=== PATIENT | female | born 1975 ===

== ENCOUNTER 2017-03-17 21:50 | Emergency (ER) | payer MEDICARE, MEDICAID ==
[2017-03-17 22:23] VITALS: RESP 18; O2SAT 98
--- NOTE | 2017-03-17 23:18 | C.PDOC ---
History Of Present Illness 41 y/o female brought to ED by EMS for public intoxications. No signs of injury on arrival. Patient with no physical or medical complaints. Chief Complaint (Nursing): Substance Abuse History Per: Patient History/Exam Limitations: no limitations Current Symptoms Are (Timing): Still Present Modifying Factor(s): Alcohol Associated Symptoms: denies: Anxiety, Agitation, Depression, Suicidal Thoughts, Suicidal Plan Recent travel outside of the [place]: No Past Medical History Reviewed: Historical Data, Nursing Documentation, Vital Signs Vital Signs: Last Vital Signs Temp 97.4 F L 03/17/17 21:57 Pulse 90 03/17/17 21:57 Resp 18 03/17/17 21:57 BP 132/86 03/17/17 21:57 Pulse Ox 98 03/17/17 23:18 - Medical History PMH: No Chronic Diseases Family History: States: Unknown Family Hx - Social History Hx Alcohol Use: Yes Hx Substance Use: No - Immunization History Hx Tetanus Toxoid Vaccination: No Hx Influenza Vaccination: No Hx Pneumococcal Vaccination: No Review Of Systems Except As Marked, All Systems Reviewed And Found Negative. Constitutional: Negative for: Fever, Chills Cardiovascular: Negative for: Chest Pain, Palpitations Respiratory: Negative for: Cough, Shortness of Breath Gastrointestinal: Negative for: Nausea, Vomiting Skin: Negative for: Rash Psych: Negative for: Suicidal ideation, Withdrawal Physical Exam - Physical Exam Appears: Non-toxic, No Acute Distress Skin: Normal Color, Warm, Dry Head: Atraumatic, Normacephalic Chest: Symmetrical Cardiovascular: Rhythm Regular Respiratory: Normal Breath Sounds, No Rales, No Rhonchi, No Wheezing Gastrointestinal/Abdominal: Soft, No Tenderness Back: Normal Inspection Extremity: Normal ROM, Capillary Refill (< 2 sec. ) Neurological/Psych: Oriented x3 ED Course And Treatment - Laboratory Results Result Diagrams: 03/17/17 23:23 03/17/17 23:23 O2 Sat by Pulse Oximetry: 98 (RA) Pulse Ox Interpretation: Normal Progress Note: Labs ordered and reviewed. Disposition - Disposition Referrals: ED Physician, [Staff Provider] - [facility] at [facility] [Outside] Disposition: HOME/ ROUTINE Disposition Time: 04:21 Condition: STABLE Instructions: Abuse of Alcohol (ED) - POA Present On Arrival: None - Clinical Impression Clinical Impression: Alcohol abuse - Scribe Statement The provider has reviewed the documentation as recorded by the Melisa Diaz Provider Melisa Attestation: All medical record entries made by the Melisa were at my direction and personally dictated by me. I have reviewed the chart and agree that the record accurately reflects my personal performance of the history, physical exam, medical decision making, and the department course for this patient. I have also personally directed, reviewed, and agree with the discharge instructions and disposition.
[2017-03-17 23:26] LABS: BASO # 0.1 K/uL (0.0-0.2); BASO % 0.8 % (0.0-2.0); EOS # 0.1 K/uL (0.0-0.7); EOS % 1.2 % (0.0-4.0); HEMATOCRIT 42.2 % (34.0-47.0); LYMPH # 1.4 K/uL (1.0-4.3); MEAN CELL VOLUME 104.4 fL (81.0-99.0); MEAN CORPUSCULAR HEMOGLOBIN 34.8 pg (27.0-31.0); MEAN CORPUSCULAR HGB CONC 33.4 g/dL (33.0-37.0); MEAN PLATELET VOLUME 8.9 fL (7.2-11.7); MONO # 0.4 K/uL (0.0-0.8); MONO % 6.2 % (0.0-10.0); RED CELL DISTRIBUTION WIDTH 14.1 % (11.5-14.5); WHITE BLOOD COUNT 6.8 K/uL (4.8-10.8)
[2017-03-17 23:33] LABS: CHLORIDE 111 mmol/L (98-107)
[2017-03-17 23:34] LABS: SODIUM 148 mmol/L (132-148)
[2017-03-17 23:36] LABS: ALB/GLOB RATIO 1.5 (1.0-2.1); ALKALINE PHOSPHATASE 58 U/L (38-126); ALT/SGPT 9 U/L (9-52); AST/SGOT 20 U/L (14-36); BILIRUBIN,TOTAL 0.4 mg/dL (0.2-1.3); BLOOD UREA NITROGEN 7 mg/dL (7-17); CARBON DIOXIDE 23 mmol/L (22-30); GFR AFRICAN-AMERICAN > 60; GLUCOSE,RANDOM 93 mg/dL (65-105)
[2017-03-17 23:37] LABS: CALCIUM 8.4 mg/dl (8.6-10.4)
[2017-03-17 23:47] LABS: ALCOHOL SERUM 386 mg/dl (0-10)
[2017-03-18 01:16] LABS: RBC URINE 1 /hpf (0-3); URINE BACTERIA OCC (<OCC); URINE BILIRUBIN NEGATIVE (NEGATIVE); URINE BLOOD NEGATIVE (NEGATIVE); URINE COLOR Straw (YELLOW); URINE GLUCOSE (UA) NORMAL (Normal); URINE KETONE NEGATIVE (NEGATIVE); URINE LEUKOCYTE ESTERASE NEG Leu/uL (Negative); URINE PROTEIN NEGATIVE (NEGATIVE); URINE UROBILINOGEN NORMAL mg/dL (0.2-1.0); WBC URINE 1 /hpf (0-5)
[2017-03-18 04:44] VITALS: BP 148/74; PULSE 92; TEMP 98.2
== END 2017-03-18 04:38 | disposition home or self-care (01) ==
LOC: MERGE 21:50 → C.ER 21:50 → EDBD 21:50 → EDSEX 21:50 → C.ER 03-18 04:38
DX: F10.120 Alcohol abuse with intoxication, uncomplicated (principal); Y90.8 Blood alcohol level of 240 mg/100 ml or more
CPT/HCPCS: 80053; 81001; 82948; 85025; 99284; G0480

== ENCOUNTER 2017-04-05 01:06 | Emergency (ER) | payer MEDICARE, MEDICAID ==
[2017-04-05 01:24] VITALS: RESP 18; O2SAT 99
--- NOTE | 2017-04-05 01:57 | C.PDOC ---
History Of Present Illness Patient is a 41 year old female who presents to the ER with a complaint of lower back pain that radiates to the legs, more to the right, for the past 3 months. Denies swelling, weakness, or numbness. Time Seen by Provider: 04/05/17 01:30 Chief Complaint (Nursing): Lower Extremity Problem/Injury History Per: Patient History/Exam Limitations: no limitations Onset/Duration Of Symptoms: Days (3 months) Current Symptoms Are (Timing): Still Present Recent travel outside of the [place]: No Additional History Per: Patient Past Medical History Reviewed: Historical Data, Nursing Documentation, Vital Signs Vital Signs: Last Vital Signs Temp 98.6 F 04/05/17 03:51 Pulse 78 04/05/17 03:51 Resp 18 04/05/17 03:51 BP 128/75 04/05/17 03:51 Pulse Ox 99 04/05/17 03:51 - Medical History PMH: Bipolar Disorder, Schizophrenia Surgical History: No Surg Hx - [facility] Procedures CLOSURE SKIN & SUBCUTANEOUS NEC (07/15/14) TETANUS TOXOID ADMINIST (01/01/14) Family History: States: Unknown Family Hx - Social History Hx Tobacco Use: Yes Hx Alcohol Use: Yes Hx Substance Use: Yes - Immunization History Hx Tetanus Toxoid Vaccination: Yes (01/01/2014) Hx Influenza Vaccination: No Hx Pneumococcal Vaccination: No Review Of Systems Musculoskeletal: Positive for: Back Pain (Lower), Leg Pain (Radiating from back , more on right.) Neurological: Negative for: Weakness, Numbness Physical Exam - Physical Exam Appears: Well, Non-toxic Skin: Normal Color, Warm, Dry Head: Atraumatic, Normacephalic Oral Mucosa: Moist Back: No Vertebral Tenderness, Paraspinal Tenderness (Lumbar/sacral) Extremity: Normal ROM (Legs) Neurological/Psych: Oriented x3, Normal Speech, Normal Cognition, Other ( Ambulatory with no difficulty) Gait: Steady ED Course And Treatment O2 Sat by Pulse Oximetry: 99 Progress Note: Flexeril and toradol administered. On reexamination patient feels better, will discharge home and advise to follow up with ortho. Disposition - Disposition Referrals: Non [facility] Provider, [Primary Care Provider] - Disposition: HOME/ ROUTINE Disposition Time: 03:46 Condition: STABLE Additional Instructions: Follow up with your PMD/Clinic within 1-2 days. Return to ED if feel worse. Prescriptions: Cyclobenzaprine [Cyclobenzaprine HCl] 10 mg PO TID #15 tab Naproxen [Naprosyn] 1 tab PO BID PRN #25 tab PRN Reason: Pain Instructions: Lumbar Radiculopathy (ED) - Clinical Impression Clinical Impression: Lumbar radiculopathy - Scribe Statement The provider has reviewed the documentation as recorded by the Scribruddy Negron All medical record entries made by the Rafaibruddy were at my direction and personally dictated by me. I have reviewed the chart and agree that the record accurately reflects my personal performance of the history, physical exam, medical decision making, and the department course for this patient. I have also personally directed, reviewed, and agree with the discharge instructions and disposition.
[2017-04-05 03:53] VITALS: BP 128/75; PULSE 78; TEMP 98.6
== END 2017-04-05 03:55 | disposition home or self-care (01) ==
LOC: C.ER 01:06 → SUPCPDRO 01:06 → C.ER 03:55
DX: M54.16 Radiculopathy, lumbar region (principal)
CPT/HCPCS: 96372; 99284; J1885

== ENCOUNTER 2018-02-05 12:07 | Emergency (ER) | payer MEDICAID, OTHER ==
[2018-02-05 13:22] LABS: HCG,QUALITATIVE URINE NEGATIVE (NEGATIVE)
[2018-02-05 13:25] LABS: SQUAMOUS EPITHIAL < 1 /hpf (0-5); URINE BILIRUBIN NEGATIVE (NEGATIVE); URINE BLOOD 2+ (NEGATIVE); URINE CLARITY Clear (Clear); URINE COLOR Colorless (YELLOW); URINE GLUCOSE (UA) NORMAL (Normal); URINE LEUKOCYTE ESTERASE NEG Leu/uL (Negative); URINE PROTEIN NEGATIVE (NEGATIVE); URINE UROBILINOGEN NORMAL mg/dL (0.2-1.0)
[2018-02-05 13:57] LABS: BASO % 0.6 % (0.0-2.0); EOS % 0.7 % (0.0-4.0); HEMOGLOBIN 13.1 g/dL (11.0-16.0); LYMPH # 1.1 K/uL (1.0-4.3); MEAN CELL VOLUME 102.5 fL (81.0-99.0); MEAN CORPUSCULAR HEMOGLOBIN 34.2 pg (27.0-31.0); MEAN CORPUSCULAR HGB CONC 33.4 g/dL (33.0-37.0); MEAN PLATELET VOLUME 9.4 fL (7.2-11.7); MONO # 0.7 K/uL (0.0-0.8); MONO % 10.6 % (0.0-10.0); NEUT # 4.5 K/uL (1.8-7.0); NEUT % 71.1 % (50.0-75.0); RBC 3.83 Mil/uL (3.80-5.20); RED CELL DISTRIBUTION WIDTH 16.6 % (11.5-14.5); WHITE BLOOD COUNT 6.3 K/uL (4.8-10.8)
[2018-02-05 14:05] LABS: INR 0.9
[2018-02-05 14:17] LABS: ALB/GLOB RATIO 1.3 (1.0-2.1); ALBUMIN 3.9 g/dL (3.5-5.0); ALT/SGPT 37 U/L (9-52); AST/SGOT 59 U/L (14-36); BLOOD UREA NITROGEN 13 mg/dL (7-17); CALCIUM 8.7 mg/dl (8.6-10.4); GFR AFRICAN-AMERICAN > 60; GFR NON-AFRICAN AMERICAN > 60
--- NOTE | 2018-02-05 14:55 | US ---
HISTORY: Pain COMPARISON: None available. TECHNIQUE: Transabdominal and transvaginal FINDINGS: UTERUS: Measures 10.3 x 3.9 x 6.4 cm. Normal in size and appearance. No fibroid or other mass lesion seen. ENDOMETRIUM: Measures 5 mm in diameter. Unremarkable. CERVIX: No cervical abnormality identified. RIGHT OVARY: Measures 4.0 x 3.1 x 3.9 cm. No solid mass. Normal flow. Simple cyst, 2.4 x 2.7 x 3.0 cm LEFT OVARY: Measures 5.7 x 4.6 x 5.2 cm. No solid mass. Normal flow. Complex cyst with low-level internal echoes, 4.9 x 4.2 x 4.1 cm. Likely hemorrhagic cyst. Followup advised with transvaginal ultrasound in 6-8 weeks. FREE FLUID: No significant free fluid noted. OTHER FINDINGS: None. IMPRESSION: Unremarkable uterus and endometrium. 4.9 cm complex left ovarian cyst most likely representing hemorrhagic cyst. Recommend followup transvaginal pelvic ultrasound examination in 6-8 weeks. 3.0 cm simple right ovarian cyst.
--- NOTE | 2018-02-05 15:11 | C.PDOC ---
History Of Present Illness 42 y/o female presents to the ER complaining of irregular periods which have been present for the past 5 months. Patient states that she has periods 2x a month. Patient notes that she did not see a physician for her symptoms. She denies having fever, chills, nausea, vomiting, and diarrhea. Time Seen by Provider: 02/05/18 12:18 Chief Complaint (Nursing): Female Genitourinary History Per: Patient History/Exam Limitations: no limitations Onset/Duration Of Symptoms: Days Current Symptoms Are (Timing): Still Present Severity: Moderate Past Medical History Reviewed: Historical Data, Nursing Documentation, Vital Signs Vital Signs: Last Vital Signs Temp 98.4 F 02/05/18 15:46 Pulse 60 02/05/18 15:46 Resp 20 02/05/18 15:46 BP 121/75 02/05/18 15:46 Pulse Ox 98 02/05/18 16:05 - Medical History PMH: Bipolar Disorder, Schizophrenia Denies: Diabetes, Hepatitis, HIV, HTN, Seizures, Sexually Transmitted Disease Surgical History: No Surg Hx - [facility] Procedures CLOSURE SKIN & SUBCUTANEOUS NEC (07/15/14) TETANUS TOXOID ADMINIST (01/01/14) Family History: States: No Known Family Hx - Social History Hx Tobacco Use: Yes Hx Alcohol Use: No Hx Substance Use: No - Immunization History Hx Tetanus Toxoid Vaccination: No Hx Influenza Vaccination: No Hx Pneumococcal Vaccination: No Review Of Systems Except As Marked, All Systems Reviewed And Found Negative. Constitutional: Negative for: Fever, Chills Gastrointestinal: Negative for: Nausea, Vomiting, Diarrhea Genitourinary: Positive for: Vaginal Bleeding Physical Exam - Physical Exam Appears: Non-toxic, No Acute Distress Skin: Normal Color, Warm, Dry Head: Atraumatic, Normacephalic Eye(s): bilateral: Normal Inspection Nose: Normal Oral Mucosa: Moist Neck: Supple Chest: Symmetrical Cardiovascular: Rhythm Regular Respiratory: Normal Breath Sounds, No Rales, No Rhonchi, No Wheezing Gastrointestinal/Abdominal: Normal Exam, Soft, No Tenderness Extremity: Normal ROM Neurological/Psych: Oriented x3, Normal Speech, Normal Motor, Normal Sensation ED Course And Treatment - Laboratory Results Result Diagrams: 02/05/18 13:47 02/05/18 13:47 O2 Sat by Pulse Oximetry: 98 (RA) Pulse Ox Interpretation: Normal - CT Scan/US US- Pelvis/Transvag. Other Rad Studies (CT/US): Read By Radiologist, Radiology Report Reviewed CT/US Interpretation: HISTORY: Pain. COMPARISON: None available. TECHNIQUE: Transabdominal and transvaginal. FINDINGS: UTERUS: Measures 10.3 x 3.9 x 6.4 cm. Normal in size and appearance. No fibroid or other mass lesion seen. ENDOMETRIUM: Measures 5 mm in diameter. Unremarkable. CERVIX: No cervical abnormality identified. RIGHT OVARY: Measures 4.0 x 3.1 x 3.9 cm. No solid mass. Normal flow. Simple cyst, 2.4 x 2.7 x 3.0 cm. LEFT OVARY: Measures 5.7 x 4.6 x 5.2 cm. No solid mass. Normal flow. Complex cyst with low-level internal echoes, 4.9 x 4.2 x 4.1 cm. Likely hemorrhagic cyst. Followup advised with transvaginal ultrasound in 6-8 weeks. FREE FLUID: No significant free fluid noted. OTHER FINDINGS: None. IMPRESSION: Unremarkable uterus and endometrium. 4.9 cm complex left ovarian cyst most likely representing hemorrhagic cyst. Recommend followup transvaginal pelvic ultrasound examination in 6-8 weeks. 3.0 cm simple right ovarian cyst. Progress Note: Labs, UA, and US- Pelv/ Transvag ordered and reviewed. Disposition - Disposition Referrals: [facility] [Outside] [facility] [Outside] [facility] [Outside] Disposition: HOME/ ROUTINE Disposition Time: 15:08 Condition: STABLE Additional Instructions: Follow up with OBGYN within 1-2 days. Return to ED if feel worse. 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 - Scribe Statement The provider has reviewed the documentation as recorded by the Melisa Coffman Provider Attestation All medical record entries made by the Scribe were at my direction and personally dictated by me. I have reviewed the chart and agree that the record accurately reflects my personal performance of the history, physical exam, medical decision making, and the department course for this patient. I have also personally directed, reviewed, and agree with the discharge instructions and disposition.
[2018-02-05 15:48] VITALS: BP 121/75; PULSE 60; RESP 20; TEMP 98.4
[2018-02-05 16:01] VITALS: O2SAT 98
== END 2018-02-05 15:48 | disposition home or self-care (01) ==
LOC: C.ER 12:07
DX: N83.209 Unspecified ovarian cyst, unspecified side (principal); N93.8 Other specified abnormal uterine and vaginal bleeding

== ENCOUNTER 2018-05-07 22:46 | Inpatient (IN) | payer MEDICAID, OTHER ==
--- NOTE | 2018-05-08 00:20 | C.PDOC ---
History Of Present Illness 42 year old female with a Hx of bipolar disorder and schizophrenia brought in by police for a psych evaluation. Patient states she was having an argument with her mother when she called 911, she is not sure why she is here. Denies suicidal ideation, homicidal ideation, or other complaints. I called and spoke with mother who states patient has been drinking for the past 2 nights, getting home late, being loud and disruptive, and threatened her life. She states patient has been noncompliant for months and wants her to be evaluated. Time Seen by Provider: 05/07/18 23:28 Chief Complaint (Nursing): Psychiatric Evaluation History Per: Patient History/Exam Limitations: no limitations Onset/Duration Of Symptoms: Hrs Current Symptoms Are (Timing): Still Present Suicide/Self Injury Attempted (Context): None Modifying Factor(s): None Associated Symptoms: denies: Suicidal Thoughts, Suicidal Plan, Other (homicidal ideation) Involuntary Hold By: None Recent travel outside of the [place]: No Additional History Per: Family (Mother) Past Medical History Reviewed: Historical Data, Nursing Documentation, Vital Signs Vital Signs: Last Vital Signs Temp 98.2 F 05/08/18 03:01 Pulse 68 05/08/18 03:01 Resp 20 05/08/18 03:01 BP 121/76 05/08/18 03:01 Pulse Ox 97 05/08/18 03:01 - Medical History PMH: Bipolar Disorder, Schizophrenia Surgical History: No Surg Hx - [facility] Procedures CLOSURE SKIN & SUBCUTANEOUS NEC (07/15/14) TETANUS TOXOID ADMINIST (01/01/14) Family History: States: No Known Family Hx - Social History Hx Tobacco Use: Yes Hx Alcohol Use: Yes Hx Substance Use: Yes - Immunization History Hx Tetanus Toxoid Vaccination: No Hx Influenza Vaccination: No Hx Pneumococcal Vaccination: No Review Of Systems Constitutional: Negative for: Fever, Chills Cardiovascular: Negative for: Chest Pain, Palpitations Respiratory: Negative for: Shortness of Breath Gastrointestinal: Negative for: Nausea, Vomiting, Diarrhea Psych: Negative for: Depression, Suicidal ideation, Other (Homicidal ideation) Physical Exam - Physical Exam Appears: Non-toxic Skin: Normal Color, Warm, Dry Head: Atraumatic, Normacephalic Eye(s): bilateral: Normal Inspection Oral Mucosa: Moist Chest: Symmetrical, No Tenderness Cardiovascular: Rhythm Regular Respiratory: Normal Breath Sounds, No Rales, No Rhonchi, No Wheezing Gastrointestinal/Abdominal: Soft, No Tenderness Extremity: Normal ROM (x4) Neurological/Psych: Oriented x3, Normal Speech, Other (labile mood) ED Course And Treatment - Laboratory Results Result Diagrams: 05/08/18 00:01 05/08/18 00:01 O2 Sat by Pulse Oximetry: 99 (Room air) Pulse Ox Interpretation: Normal Medical Decision Making Medical Decision Making: Impression: 42 year old female for psych evaluation Plan: * Blood work * Urinalysis * Crisis eval Progress: Labs ordered and reviewed. In my clinical judgment patient is medically cleared and stable for psychiatric admission. culture room worker contacted for evaluation. As per CW patient is to be admitted. 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 - Scribe Statement The provider has reviewed the documentation as recorded by the Scribe Shar Negron All medical record entries made by the Scribe were at my direction and personally dictated by me. I have reviewed the chart and agree that the record accurately reflects my personal performance of the history, physical exam, medical decision making, and the department course for this patient. I have also personally directed, reviewed, and agree with the discharge instructions and disposition. Decision To Admit - Pt Status Changed To: Hospital Disposition Of: Inpatient - Admit Certification Admit to Inpatient:: After my assessment, the patient will require hospitalization for at least two midnights. This is because of the severity of symptoms shown, intensity of services needed, and/or the medical risk in this patient being treated as an outpatient. - InPatient: Physician Admission Certification: I certify that this patient requires 2 or more midnights of care for the following reason:: Patient will benefit from inpatient psych admission - . Bed Request Type: Psychiatry Admitting Physician: Feli Briscoe Patient Diagnosis: Bipolar 1 disorder
[2018-05-08 00:21] LABS: ALB/GLOB RATIO 1.3 (1.0-2.1); ALBUMIN 4.2 g/dL (3.5-5.0); ALT/SGPT 35 U/L (9-52); AST/SGOT 51 U/L (14-36); BLOOD UREA NITROGEN 9 mg/dL (7-17); CALCIUM 8.8 mg/dl (8.6-10.4); GFR AFRICAN-AMERICAN > 60; GFR NON-AFRICAN AMERICAN > 60
[2018-05-08 00:22] LABS: BARBITURATES, UR NEGATIVE (NEGATIVE); BENZODIAZEPINES, UR NEGATIVE (NEGATIVE); OPIATES, UR NEGATIVE (NEGATIVE); PHENCYCLIDINE, UR NEGATIVE (NEGATIVE)
[2018-05-08 00:27] LABS: BASO # 0.1 K/uL (0.0-0.2); EOS # 0.1 K/uL (0.0-0.7); EOS % 2.7 % (0.0-4.0); HEMOGLOBIN 12.7 g/dL (11.0-16.0); LYMPH # 1.9 K/uL (1.0-4.3); MEAN CELL VOLUME 101.8 fL (81.0-99.0); MEAN CORPUSCULAR HEMOGLOBIN 34.4 pg (27.0-31.0); MEAN CORPUSCULAR HGB CONC 33.8 g/dL (33.0-37.0); MEAN PLATELET VOLUME 9.2 fL (7.2-11.7); MONO # 0.4 K/uL (0.0-0.8); MONO % 8.9 % (0.0-10.0); NEUT # 2.4 K/uL (1.8-7.0); NEUT % 49.4 % (50.0-75.0); NRBC % 0.1 % (0.0-2.0); RBC 3.68 Mil/uL (3.80-5.20); RED CELL DISTRIBUTION WIDTH 16.6 % (11.5-14.5); WHITE BLOOD COUNT 4.9 K/uL (4.8-10.8)
[2018-05-08 00:41] LABS: SQUAMOUS EPITHIAL 2 /hpf (0-5); URINE BILIRUBIN NEGATIVE (NEGATIVE); URINE BLOOD NEGATIVE (NEGATIVE); URINE CLARITY Clear (Clear); URINE COLOR Yellow (YELLOW); URINE GLUCOSE (UA) NORMAL (Normal); URINE LEUKOCYTE ESTERASE NEG Leu/uL (Negative); URINE PROTEIN NEGATIVE (NEGATIVE)
[2018-05-08 01:36] LABS: HCG,QUALITATIVE URINE NEGATIVE (NEGATIVE)
--- NOTE | 2018-05-08 05:13 | PCM.BM ---
<Julio C Mclain - Last Filed: 05/08/18 05:11> Treatment Plan Problems - Problems identified on initial assessmt MEDICATION NON COMPLIANCE Date Initiated: 05/08/18 Time Initiated: 03:05 Assessment reference: NA Status: Active ALCOHOL ABUSE Date Initiated: 05/08/18 Time Initiated: 03:05 Assessment reference: NA Status: Active Treatment assets and liabiliti Patient Assests: cooperative, self-reliant, ADL independent, negotiates basic needs Patient Liabilities: poor support system, relationship conflicts, substance abuse - Milieu Protocol Maintain good personal hygiene: daily Encourage regular showers, daily Remind patient to perform daily oral care, daily Assist patient to perform ADL's Maintain personal safety: every shift Educate patient to report safety concerns to staff, every shift Monitor environment for contraband/sharps Medication safety: Monitor for expected outcome, potential side effects: every shift, Assess barriers to learning: every shift, Assess readiness for medication education: every shift <Sylvia Byers - Last Filed: 05/08/18 11:26> - Diagnosis (1) Schizophrenia Status: Acute Interventions: 05/08/18 11:27 * Assess/adjust medications daily and /or as needed * See patient on an individual basis 7x/week to assess status of hallucinations * Discuss risks, benefits, side effects and alternatives of medications * <Preethi Patel - Last Filed: 05/08/18 13:53> Family Contact Family involvement: Family/SO is involved Family contact: Patient agrees to contact Family contact name: Leyla Ramirez-mother Family contacted how many times per week?: 1 - Goals for Treatment Patient goals for treatment: "I want to go home." Discharge/Continuing Care - Education Needs Education Needs: Patient Medication, Patient Coping Skills - Discharge Discharge Criteria: Tolerates medication w/o severe side effects, Reduction of target symptoms Discharge to:: Home, With Family - Treatment Team Participation Discussed with Family/SO: No Was Patient/Family/SO present at Treatment Team Meeting: Yes
--- NOTE | 2018-05-08 10:23 | PCM.PSYCH ---
Initial Psychiatric Evaluation - Initial Psychiatric Evaluation Type of Admission: Voluntary Legal Status: Capacity Chief Complaint (in patient's own words): I had a fight with my mother.' History of Present Illness and Precipitating Events: this is a 42 year old female, with past history of bipolar disorder with psychosis, was brought in by police for a psych evaluation, when she had a verbal altercation with her mother, and she call 911. As per the ED notes, mother reported that patient has been drinking for the past 2 nights, getting home late, being loud and disruptive, and threatened her life. She states patient has been noncompliant with the meds. As per the patient, she has history of more than 1 inpatient psychiatric hospitalizations, she was last discharged in 2006. As per her she is following up regularly with Dr. Salgado, in [place]. She reports that she has been partially compliant with her medications. Patient does not know why she is here and denies what her mothers accusations. patient reports at times depressed mood , feelings of helplessness and poor sleep. She also reports of drinking almost 1 pint of vodka daily. Last drink was day before evaluation. she reports anxiety , headaches, sweating but denies any other withdrawal symptoms. she reports auditory and visual hallucinations in the past, however she denies any paranoia at this moment. PMH: None reported Current Medications: Active Medications Generic Name Dose Route Start Last Admin Trade Name Freq PRN Reason Stop Dose Admin Pneumococcal Polyvalent Vaccine 0.5 ml 05/10/18 10:00 Pneumovax 23 Vaccine IM 05/10/18 10:01 .ONCE ONE Past Psychiatric History - Past Psychiatric History Previous Treatment History: Inpatient Pertinent Medical Hx (Current Medical&Sleep Prob, Allergies): Allergies Allergy/AdvReac Type Severity Reaction Status Date / Time No Known Allergies Allergy Verified 05/07/18 23:25 No Known Home Med 02/05/18 Review of Systems - Review of Systems All systems: reviewed and no additional remarkable complaints except - Psychiatric Psychiatric: Anxiety, Irritability, Mood Swings, Paranoia Mental Status Examination - Personal Presentation Personal Presentation: Looks stated age - Affect Affect: Broad, Depressed - Motor Activity Motor Activity: Calm - Reliability in Providing Information Reliability in Providing Information: Fair - Speech Speech: Organized - Mood Mood: Depressed, Anxious - Formal Thought Process Formal Thought Process: Hallucinations, Delusions, Paranoia, Loosening of associations - Hallucinations/Delusions Hallucinations: Visual, Auditory Delusions: Persecution - Obsessions/Compulsions Obsessions: Yes Compulsions: Yes - Cognitive Functions Orientation: Person, Place, Situation, Time Sensorium: Alert, Lethargic Attention/Concentration: Attentive Abstract Thinking: [place] Estimate of Intelligence: Below average Judgement: Imparied, as evidence by: Poor judgement, Imparied, as evidence by: Lack of insight into illness - Risk Risk: Diminished functioning - Strength & Assets Inventory Strength & Assets Inventory: Family support DSM 5 DX - DSM 5 DSM 5 Diagnosis: Bipolar disorder mied with psychotic features r/o SCPT continuous. Alcohol use disorder moderate - Recommended/Plan of Treatment Treatment Recommendations and Plan of Treatment: Bipolar disorder mied with psychotic features r/o SCPT continuous. CBT Psychoeducation Supportive therapy, group therapy, individual therapy Olanzapine 5 g by mouth twice a day Neurontin 100 mg by mouth 3 times a day Trazodone 50 mg by mouth daily at bedtime Alcohol use disorder moderate CBT Psychoeducation Supportive therapy, individual therapy Use [place] for abstinence Alcohol withdrawal CBT Psychoeducation Supportive therapy, individual therapy Librium PRN
--- NOTE | 2018-05-09 19:17 | PCM.PYCHPN ---
Psychiatric Progress Note - Psychiatric Progress Note Patient seen today, length of contact: 15 minutes Patient Chief Complaint: I'm feeling better. I don't want Zyprexa. Problems Identified/Issues Discussed: Patient seen, chart reviewed, case discussed with the staff. Issues related to illness and treatment were discussed with the patient and staff. Reported partially compliant with treatment with no adverse affects. Does not want to take Zyprexa even after education provided. Tolerating treatment very well. Feeling much better. Aftercare discussed with the patient. At the time of evaluation, patient was awake alert oriented 3, had no delusions , no auditory or visual hallucinations, no suicidal ideations or homicidal ideations. Medical Problems: None reported Diagnostic Results: Reviewed DSM 5 Symptoms Update: Some improvement with treatment Medication Change: No Medical Record Reviewed: Yes Mental Status Examination - Cognitive Function Orientation: Person, Place, Situation, Time Memory: Intact Attention: WNL Concentration: WNL Association: [facility] Fund of Knowledge: [facility] Decription of patient's judgement and insights: Fair - Mood Mood: Neutral - Affect Affect: Depressed - Speech Speech: Appropriate - Formal Thought Process Formal Thought Process: No Impairment Psychotic Thoughts and Behaviors: None - Suicidal Ideation Suicidal Ideation: No - Homicidal Ideation Homicidal Ideation: No Goal/Treatment Plan - Goal/Treatment Plan Need for Continued Stay: Remain at risks for inpatient hospitalization, Discharge may exacerbated symptoms, Severe functional impairment Progress Toward Problem(s) and Goals/Treatment Plan: Improving with treatment. Patient education. Supportive therapy. CBT for relapse or intention. MRI for abstinence. Continue treatment as before. Estimated Date of D/C: 05/13/18 - Smoking Cessation Smoking Cessation Initiated: No Reason for not providing: Patient doesn't smoke cigarettes
[2018-05-10] MEDS ORDERED: Pneumococcal 23-Valent Vaccine IM ONE (10:00)
--- NOTE | 2018-05-10 19:37 | PCM.PYCHPN ---
Psychiatric Progress Note - Psychiatric Progress Note Patient seen today, length of contact: 15 minutes Patient Chief Complaint: I'm feeling better. Can I go home today. Problems Identified/Issues Discussed: Patient seen, chart reviewed, case discussed with the staff. Issues related to illness and treatment were discussed with the patient and staff. Reported partially compliant with treatment with no adverse affects. Does not want to take Zyprexa even after education provided. Tolerating treatment very well. Feeling much better. Wants to go home. Aftercare discussed with the patient. At the time of evaluation, patient was awake alert oriented 3, had no delusions , no auditory or visual hallucinations, no suicidal ideations or homicidal ideations. Medical Problems: None reported Diagnostic Results: Reviewed DSM 5 Symptoms Update: Improving with treatment Medication Change: No Medical Record Reviewed: Yes Mental Status Examination - Cognitive Function Orientation: Person, Place, Situation, Time Memory: Intact Attention: WNL Concentration: WNL Association: [facility] Fund of Knowledge: [facility] Decription of patient's judgement and insights: Fair - Mood Mood: Neutral - Affect Affect: Depressed - Speech Speech: Appropriate - Formal Thought Process Formal Thought Process: No Impairment Psychotic Thoughts and Behaviors: None. - Suicidal Ideation Suicidal Ideation: No - Homicidal Ideation Homicidal Ideation: No Goal/Treatment Plan - Goal/Treatment Plan Need for Continued Stay: Remain at risks for inpatient hospitalization, Discharge may exacerbated symptoms, Severe functional impairment Progress Toward Problem(s) and Goals/Treatment Plan: Improving with treatment. Patient education. Supportive therapy. CBT for relapse or intention. MRI for abstinence. Continue treatment as before. Estimated Date of D/C: 05/13/18 - Smoking Cessation Smoking Cessation Initiated: No
--- NOTE | 2018-05-11 14:32 | PCM.PYCHPN ---
Psychiatric Progress Note - Psychiatric Progress Note Patient seen today, length of contact: 15 minutes Patient Chief Complaint: I had a fight with my mother.' Problems Identified/Issues Discussed: Patient seen and evaluated, chart reviewed and discussed with the nurse. Today patient reports some improvement in her irritability, anxiety and agitation. She reports some improvement in the racing of thoughts. She is partially compliant with the medication and denies any side effects. Symptoms are improving but she needs more time for stabilization. Supportive therapy and psychoeducation were given. Medication Change: No Medical Record Reviewed: Yes Mental Status Examination - Cognitive Function Orientation: Person, Place, Situation, Time Memory: Intact Attention: WNL Concentration: Poor Association: WNL Fund of Knowledge: Poor - Mood Mood: Neutral - Affect Affect: Depressed - Speech Speech: Appropriate - Formal Thought Process Formal Thought Process: Loosening of associations - Suicidal Ideation Suicidal Ideation: No - Homicidal Ideation Homicidal Ideation: No Goal/Treatment Plan - Goal/Treatment Plan Need for Continued Stay: Remain at risks for inpatient hospitalization, Discharge may exacerbated symptoms, Severe functional impairment Progress Toward Problem(s) and Goals/Treatment Plan: Bipolar disorder mied with psychotic features r/o SCPT continuous. CBT Psychoeducation Supportive therapy, group therapy, individual therapy Olanzapine 5 mg by mouth twice a day Neurontin 100 mg by mouth 3 times a day Trazodone 50 mg by mouth daily at bedtime Alcohol use disorder moderate CBT Psychoeducation Supportive therapy, individual therapy Use [place] for abstinence Alcohol withdrawal CBT Psychoeducation Supportive therapy, individual therapy Librium PRN Estimated Date of D/C: 05/13/18 - Smoking Cessation Smoking Cessation Initiated: No
[2018-05-12 06:29] VITALS: O2SAT 100
--- NOTE | 2018-05-12 13:38 | PCM.PYCHPN ---
Psychiatric Progress Note - Psychiatric Progress Note Patient seen today, length of contact: 15 minutes Patient Chief Complaint: I am feeling anxious.' Problems Identified/Issues Discussed: Patient seen and evaluated, chart reviewed and discussed with the nurse. Today patient reports some improvement in her irritability, anxiety and agitation. She reports some improvement in the racing of thoughts. She has stopped medication. Symptoms are improving but she needs more time for stabilization. Supportive therapy and psychoeducation were given. Medication Change: No Medical Record Reviewed: Yes Mental Status Examination - Cognitive Function Orientation: Person, Place, Situation, Time Memory: Intact Attention: WNL Concentration: Poor Association: WNL Fund of Knowledge: Poor - Mood Mood: Neutral - Affect Affect: Depressed - Speech Speech: Appropriate - Formal Thought Process Formal Thought Process: No Impairment - Suicidal Ideation Suicidal Ideation: No - Homicidal Ideation Homicidal Ideation: No Goal/Treatment Plan - Goal/Treatment Plan Need for Continued Stay: Remain at risks for inpatient hospitalization, Discharge may exacerbated symptoms, Severe functional impairment Progress Toward Problem(s) and Goals/Treatment Plan: Bipolar disorder mied with psychotic features r/o SCPT continuous. CBT Psychoeducation Supportive therapy, group therapy, individual therapy Olanzapine m5 g by mouth twice a day Neurontin 100 mg by mouth 3 times a day Trazodone 50 mg by mouth daily at bedtime Alcohol use disorder moderate CBT Psychoeducation Supportive therapy, individual therapy Use [place] for abstinence Alcohol withdrawal CBT Psychoeducation Supportive therapy, individual therapy Librium PRN Estimated Date of D/C: 05/13/18
--- NOTE | 2018-05-14 00:09 | PCM.PYCHPN ---
Psychiatric Progress Note - Psychiatric Progress Note Patient seen today, length of contact: 15 minutes Patient Chief Complaint: I am feeling anxious.' Problems Identified/Issues Discussed: Patient seen and evaluated, chart reviewed and discussed with the nurse. Today patient reports some improvement in her anxiety and agitation. She reports some improvement in the sleep. However she remained isolated and withdrawn. She has stopped medication. She appears paranoid and delusional. Symptoms are improving but she needs more time for stabilization. Supportive therapy and psychoeducation were given. Medication Change: No Medical Record Reviewed: Yes Mental Status Examination - Cognitive Function Orientation: Person, Place, Situation, Time Memory: Intact Attention: WNL Concentration: Poor Association: Loose Fund of Knowledge: Poor - Mood Mood: Neutral - Affect Affect: Depressed - Speech Speech: Appropriate - Formal Thought Process Formal Thought Process: Loosening of associations - Suicidal Ideation Suicidal Ideation: No - Homicidal Ideation Homicidal Ideation: No Goal/Treatment Plan - Goal/Treatment Plan Need for Continued Stay: Remain at risks for inpatient hospitalization, Discharge may exacerbated symptoms, Severe functional impairment Progress Toward Problem(s) and Goals/Treatment Plan: Bipolar disorder mixed with psychotic features r/o SCPT continuous. CBT Psychoeducation Supportive therapy, group therapy, individual therapy Olanzapine 5 mg by mouth twice a day Neurontin 100 mg by mouth 3 times a day Trazodone 50 mg by mouth daily at bedtime Alcohol use disorder moderate CBT Psychoeducation Supportive therapy, individual therapy Use [place] for abstinence Alcohol withdrawal CBT Psychoeducation Supportive therapy, individual therapy Librium PRN Estimated Date of D/C: 05/15/18
[2018-05-14 06:34] VITALS: BP 108/64; PULSE 70; RESP 20; TEMP 98.1
--- NOTE | 2018-05-14 11:59 | PCM.PYCHDC ---
Mental Status Examination - Mental Status Examination Orientation: Person, Place, Situation, Time Memory: Intact Mood: Neutral Affect: Constricted Speech: Soft Attention: WNL Concentration: WNL Association: WNL Fund of Knowledge: WNL Formal Thought Process: No Impairment Description of patient's judgement and insight: good, fair Psychotic Thoughts and Behaviors: denies any AVH Suicidal Ideation: No Current Homicidal Ideation?: No Discharge Summary - Discharge Note Reason for Hospitalization: this is a 42 year old female, with past history of bipolar disorder with psychosis, was brought in by police for a psych evaluation, when she had a verbal altercation with her mother, and she call 911. As per the ED notes, mother reported that patient has been drinking for the past 2 nights, getting home late, being loud and disruptive, and threatened her life. She states patient has been noncompliant with the meds. As per the patient, she has history of more than 1 inpatient psychiatric hospitalizations, she was last discharged in 2006. As per her she is following up regularly with Dr. Salgado, in [place]. She reports that she has been partially compliant with her medications. Patient does not know why she is here and denies what her mothers accusations. patient reports at times depressed mood , feelings of helplessness and poor sleep. She also reports of drinking almost 1 pint of vodka daily. Last drink was day before evaluation. she reports anxiety , headaches, sweating but denies any other withdrawal symptoms. she reports auditory and visual hallucinations in the past, however she denies any paranoia at this moment. Consultations:: List each consultation separately and include: 1. Reason for request. 2. Findings. 3. Follow-up Summary of Hospital Course include:: 1. Description of specific treatment plan utilized for patients during their course of treatmen. 2. Summarize the time- course for resolution of acute symptoms and/or regressed behaviors. 3. Describe issues identified and worked on during hospitalization. 4. Describe medication utilized. 5. Describe medical problems identified and treated. 6. Reassessment of suicide risk Summary of Hospital Course: During the course of her stay, patient (pt) started progressively improving and no longer remained irritable, depressed, and suicidal. Her mood and anxiety were improved and she started attending groups and meetings and started socializing. Patient denied any feelings of hopelessness, helplessness, and worthlessness, denied any problem with the sleep or appetite, denied suicidal ideation or homicidal ideation. Pt denied any auditory or visual hallucinations. She denied any withdrawal symptoms. Some changes were made in her current medications and patient was discharged on following medications. She tolerated these medications very well and denied any side effects. [facility] Education: Pt was educated and counseled about the risks and benefits of taking and not taking medications. Pt was educated and counseled about the risks of drinking and abusing drugs. Pt was educated and counseled to go to the ER or call 911 if pt develop suicidal ideation or homicidal ideation, worsening of symptoms or severe side effects of the meds. - Diagnosis (1) Schizophrenia Status: Acute - Final Diagnosis (DSM 5) Condition upon Discharge: GOOD DSM 5: Bipolar disorder mixed with psychotic features Alcohol use disorder moderate Alcohol withdrawal Disposition: HOME/ ROUTINE Follow-up Treatment Plan: Education: Pt was educated and counseled about the risks and benefits of taking and not taking medications. Pt was educated and counseled about the risks of drinking and abusing drugs. Pt was educated and counseled to go to the ER or call 911 if pt develop suicidal ideation or homicidal ideation, worsening of symptoms or severe side effects of the meds. Prescriptions/Medication Reconciliation: Olanzapine [Zyprexa] 5 mg PO HS #30 tablet - Smoking Cessation Smoking Cessation Medication prescribed: No - Antipsychotic Medications Pt discharged on 2 or more routine antipsychotic medications: No
== END 2018-05-14 14:00 | disposition home or self-care (01) | DRG 885 ==
LOC: C.ER 22:46 → C.5E 05-08 02:09
PROVIDERS: ADMIT Psychiatry & Neurology Psychiatry; ATTEND Psychiatry & Neurology Psychiatry
PROC: GZHZZZZ Group Psychotherapy (ICD-10-PCS; principal; 2018-05-08)
DX: F31.64 Bipolar disorder, current episode mixed, severe, with psychotic features (principal); R45.851 Suicidal ideations; F10.230 Alcohol dependence with withdrawal, uncomplicated; F41.9 Anxiety disorder, unspecified; Z91.14 Patient's other noncompliance with medication regimen; Z87.891 Personal history of nicotine dependence; F10.220 Alcohol dependence with intoxication, uncomplicated; Y90.6 Blood alcohol level of 120-199 mg/100 ml

== ENCOUNTER 2018-09-07 10:47 | Emergency (ER) | payer MEDICAID ==
[2018-09-07 10:59] VITALS: BP 128/84; PULSE 73; RESP 18; TEMP 98.2; O2SAT 97
--- NOTE | 2018-09-07 13:59 | C.PDOC ---
History Of Present Illness 43 y/o female presents to the ER complaining about right thumb nail and 2nd fingernail coming "apart." Patient is requesting for nails to be removed. Patient denies having bleeding and pain. Time Seen by Provider: 09/07/18 11:10 Chief Complaint (Nursing): Finger,Hand,&Wrist History Per: Patient History/Exam Limitations: no limitations Onset/Duration Of Symptoms: Days Current Symptoms Are (Timing): Still Present Severity: Moderate Past Medical History Reviewed: Historical Data, Nursing Documentation, Vital Signs Vital Signs: Last Vital Signs Temp 98.2 F 09/07/18 10:56 Pulse 73 09/07/18 10:56 Resp 18 09/07/18 10:56 BP 128/84 09/07/18 10:56 Pulse Ox 97 09/07/18 10:56 - Medical History PMH: Bipolar Disorder, Schizophrenia Denies: Diabetes, Hepatitis, HIV, HTN, Seizures, Sexually Transmitted Disease Surgical History: No Surg Hx - [facility] Procedures CLOSURE SKIN & SUBCUTANEOUS NEC (07/15/14) GROUP PSYCHOTHERAPY (05/08/18) TETANUS TOXOID ADMINIST (01/01/14) Family History: States: No Known Family Hx - Social History Hx Tobacco Use: Yes Hx Alcohol Use: Yes Hx Substance Use: No - Immunization History Hx Tetanus Toxoid Vaccination: No Hx Influenza Vaccination: No Hx Pneumococcal Vaccination: No Review Of Systems Except As Marked, All Systems Reviewed And Found Negative. Skin: Positive for: Other (loose fingernails) Physical Exam - Physical Exam Appears: Non-toxic, No Acute Distress Skin: Normal Color, Warm, Dry, Other (right thumb and index finger: some fungus,nail detached from bed, however bed has no laceration) Head: Atraumatic, Normacephalic Eye(s): bilateral: Normal Inspection Nose: Normal Oral Mucosa: Moist Neck: Supple Chest: Symmetrical Neurological/Psych: Oriented x3, Normal Speech ED Course And Treatment O2 Sat by Pulse Oximetry: 97 (RA) Pulse Ox Interpretation: Normal Medical Decision Making Medical Decision Making: Patient has been discharged and instructed to follow up for nail removal in nail salon. Disposition - Disposition Disposition: HOME/ ROUTINE Disposition Time: 11:30 Condition: STABLE Additional Instructions: Go to nail salon and have nails removed. Instructions: Fungal Nail Infections Forms: [employer] (Chinese) - Clinical Impression Clinical Impression: Nail fungus, Nail avulsion - PA / [employer] / Resident Statement MD/DO has reviewed & agrees with the documentation as recorded. - Scribe Statement The provider has reviewed the documentation as recorded by the Scribe Gilberto Coffman Provider Attestation All medical record entries made by the Rafaibe were at my direction and personally dictated by me. I have reviewed the chart and agree that the record accurately reflects my personal performance of the history, physical exam, medical decision making, and the department course for this patient. I have also personally directed, reviewed, and agree with the discharge instructions and disposition.
== END 2018-09-07 11:38 | disposition home or self-care (01) ==
LOC: C.ER 10:47
DX: B35.1 Tinea unguium (principal); S61.101A Unspecified open wound of right thumb with damage to nail, initial encounter; S61.300A Unspecified open wound of right index finger with damage to nail, initial encounter; X58.XXXA Exposure to other specified factors, initial encounter

== ENCOUNTER 2018-11-18 15:12 | Emergency (ER) | payer BC, OTHER | END 2018-11-18 16:20 | disposition left against medical advice (07) | LOC: C.ER 15:12 | DX: Z02.89 Encounter for other administrative examinations (principal); R10.9 Unspecified abdominal pain ==

== ENCOUNTER 2018-11-18 16:24 | Emergency (ER) | payer BC, OTHER ==
[2018-11-18 16:41] VITALS: RESP 18; O2SAT 98
--- NOTE | 2018-11-18 18:40 | C.PDOC ---
History Of Present Illness CC "abdominal pain" HPI: Patient is a 43 year old female with history of bipolar disorder, seizures, who comes for epigastric pain describes as burning pain 7-8 out of 10, that radiates to her back, relieved with food that started today associated with nausea. She states she has had this pain on and off since 2006 however states that she never sought medical attention for her symptoms. She denies any aggravating symptoms. She states she has a bad headache that started slowly, currently 8/10 that she states she has pain all over her head. She denies fevers, chills, chest pain, palpitations, vomiting. She states that she had 2 yellow brown soft stools today. She denies constipation. PMD: none PMH: "absence seizures", bipolar disorder PSH: tonsillectomy Family hx: none Home meds: has not taken Zyprexa 5mg in years, has never been on medications for seizures, Social hx: 1/2 ppd since age 19, drinks 1 pint of vodka daily, (+) marijuana use Allergies: NKDA LMP: currently <Joselyn Moreno - Last Filed: 11/18/18 19:09> Patient seen and examined. States that has history of epigastric pain that occurs daily, is associated with nausea and radiates to her LUQ and into her back. She admits to drinking a pint of vodka daily. <Winnie Skinner - Last Filed: 11/18/18 20:04> <Joselyn Moreno - Last Filed: 11/18/18 19:09> <Winnie Skinner - Last Filed: 11/18/18 20:04> Time Seen by Provider: 11/18/18 18:36 Chief Complaint (Nursing): Abdominal Pain Past Medical History Vital Signs: Last Vital Signs Temp 97.6 F 11/18/18 16:38 Pulse 73 11/18/18 16:38 Resp 18 11/18/18 16:38 BP 138/69 11/18/18 16:38 Pulse Ox 98 11/18/18 16:38 - Medical History PMH: Bipolar Disorder, Schizophrenia Denies: Diabetes, Hepatitis, HIV, HTN, Seizures, Sexually Transmitted Disease Surgical History: Tonsillectomy - [facility] Procedures CLOSURE SKIN & SUBCUTANEOUS NEC (07/15/14) GROUP PSYCHOTHERAPY (05/08/18) TETANUS TOXOID ADMINIST (01/01/14) Family History: States: Unknown Family Hx - Social History Hx Tobacco Use: Yes Hx Alcohol Use: Yes Hx Substance Use: Yes - Immunization History Hx Tetanus Toxoid Vaccination: No Hx Influenza Vaccination: No Hx Pneumococcal Vaccination: No <Joselyn Moreno - Last Filed: 11/18/18 19:09> Vital Signs: Last Vital Signs Temp 97.6 F 11/18/18 16:38 Pulse 73 11/18/18 16:38 Resp 18 11/18/18 16:38 BP 138/69 11/18/18 16:38 Pulse Ox 98 11/18/18 19:11 - [facility] Procedures CLOSURE SKIN & SUBCUTANEOUS NEC (07/15/14) GROUP PSYCHOTHERAPY (05/08/18) TETANUS TOXOID ADMINIST (01/01/14) <Winnie Skinner - Last Filed: 11/18/18 20:04> Physical Exam - Physical Exam Appears: Well, Non-toxic, No Acute Distress Skin: Other (Psoriatic plaque noted on elbows bilaterally, around umbilicus, gluteal cleft, pubic region) Eye(s): bilateral: PERRL, EOMI Oral Mucosa: Moist Neck: Normal Cardiovascular: Rhythm Regular, No Friction Rub, No Murmur, No JVD Respiratory: Normal Breath Sounds, No Rales, No Rhonchi, No Stridor, No Wheezing Gastrointestinal/Abdominal: Bowel Sounds, Soft, Tenderness (Minima epigastric), No Organomegaly, No Mass, No Distention, No Guarding, No Rebound, No Ascites Back: No CVA Tenderness Neurological/Psych: Oriented x3 <Joselyn Moerno - Last Filed: 11/18/18 19:09> ED Course And Treatment O2 Sat by Pulse Oximetry: 98 <Joselyn Moreno - Last Filed: 11/18/18 19:09> - Laboratory Results Result Diagrams: 11/18/18 18:57 11/18/18 18:57 Lab Interpretation: Abnormal (AST 82, ALT <6, Bili 2.0, ETOH 102) Pulse Ox Interpretation: Normal Reevaluation Time: 20:00 Reassessment Condition: Improved (Patient states that she no longer has abdominal pain. Abdomen is soft and nontender at this time.) <Winnie Skinner - Last Filed: 11/18/18 20:04> Disposition <Joselyn Moreno - Last Filed: 11/18/18 19:09> Counseled Patient/Family Regarding: Studies Performed, Diagnosis, Need For Followup, Rx Given - Disposition Disposition Time: 20:03 <Winnie Skinner - Last Filed: 11/18/18 20:04> - Disposition Referrals: Alcoholics Anonymous [Outside] [facility] [Outside] Disposition: HOME/ ROUTINE Condition: STABLE Prescriptions: Pantoprazole [Protonix EC Tab] 40 mg PO DAILY #14 ect Instructions: Gastritis, Alcohol Use - When Is Drinking a Problem? Forms: [facility] (Hungarian) - Clinical Impression Clinical Impression: Alcoholic gastritis
[2018-11-18 19:09] LABS: BASO # 0.1 K/uL (0.0-0.2); BASO % 0.9 % (0.0-2.0); EOS % 0.3 % (0.0-4.0); HEMOGLOBIN 14.2 g/dL (11.0-16.0); LYMPH # 1.3 K/uL (1.0-4.3); LYMPH % 13.3 % (20.0-40.0); MEAN CELL VOLUME 99.6 fL (81.0-99.0); MEAN CORPUSCULAR HEMOGLOBIN 33.9 pg (27.0-31.0); MEAN PLATELET VOLUME 10.1 fL (7.2-11.7); MONO # 0.4 K/uL (0.0-0.8); MONO % 4.1 % (0.0-10.0); NEUT % 81.4 % (50.0-75.0); NRBC % 0.1 % (0.0-2.0); RBC 4.2 Mil/uL (3.80-5.20); RED CELL DISTRIBUTION WIDTH 15.4 % (11.5-14.5); WHITE BLOOD COUNT 9.8 K/uL (4.8-10.8)
[2018-11-18 19:24] LABS: BARBITURATES, UR NEGATIVE (NEGATIVE); BENZODIAZEPINES, UR NEGATIVE (NEGATIVE); OPIATES, UR NEGATIVE (NEGATIVE); PHENCYCLIDINE, UR NEGATIVE (NEGATIVE)
[2018-11-18 19:38] LABS: URINE BACTERIA RARE (<OCC); URINE BILIRUBIN NEGATIVE (NEGATIVE); URINE BLOOD 3+ (NEGATIVE); URINE CLARITY Clear (Clear); URINE COLOR Yellow (YELLOW); URINE GLUCOSE (UA) NORMAL (Normal); URINE LEUKOCYTE ESTERASE TRACE Leu/uL (Negative); URINE PROTEIN NEGATIVE (NEGATIVE); URINE UROBILINOGEN NORMAL mg/dL (0.2-1.0)
[2018-11-18 19:49] LABS: BLOOD UREA NITROGEN 8 mg/dL (7-17); CALCIUM 9.3 mg/dl (8.6-10.4); GFR NON-AFRICAN AMERICAN > 60; LIPASE 43 U/L (23-300)
[2018-11-18 19:50] LABS: ALB/GLOB RATIO 1.4 (1.0-2.1); ALBUMIN 5.2 g/dL (3.5-5.0); ALT/SGPT < 6 U/L (9-52); AMYLASE 93 U/L (30-110); AST/SGOT 82 U/L (14-36); BILIRUBIN,DIRECT 1.6 mg/dL (0.0-0.4)
[2018-11-18] MEDS ORDERED: Pantoprazole 40 mg EC Tab PO STA (20:00)
[2018-11-18] MEDS ORDERED: Pantoprazole 40 mg EC Tab PO ONE (20:17)
[2018-11-18 20:40] VITALS: BP 113/69; PULSE 72; TEMP 98.1
== END 2018-11-18 20:20 | disposition home or self-care (01) ==
LOC: C.ER 16:24
DX: K29.20 Alcoholic gastritis without bleeding (principal)
CPT/HCPCS: 80053; 81001; 82150; 82248; 83690; 85025; 99284; G0480

== ENCOUNTER 2019-03-09 13:31 | Emergency (ER) | payer MEDICAID, OTHER ==
[2019-03-09 13:40] VITALS: BP 117/74; PULSE 88; RESP 18; TEMP 98.8; O2SAT 100
--- NOTE | 2019-03-09 14:14 | C.PDOC ---
History Of Present Illness 43-year-old female presents to the ED for evaluation of worsening skin lesions for several months. Patient has history of psoriasis and states that it has been bad for a while. 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 WORSENING SKIN LESIONS X SEV MONTHS. H/O PSORIASIS "BAD FOR A WHILE". NO IMPROVE W OTC STEROID AND UNK OTC "PSORIASIS DRUGS". NO PRIOR MANAGER SHAREPOINT EVAL. NO OTHER ASSOC SX EXAM NONTOXIC SKIN B/L FOREARM SKIN PLAQUES C/W PSORIASIS. NO CELLULITIS, DC REMAINDE RNEG MDM ADVISED NEED FOR MANAGER SHAREPOINT EVAL. CLINIC REFERRAL Time Seen by Provider: 03/09/19 13:35 Chief Complaint (Nursing): Abnormal Skin Integrity History Per: Patient History/Exam Limitations: no limitations Onset/Duration Of Symptoms: Days Past Medical History Reviewed: Historical Data, Nursing Documentation, Vital Signs Vital Signs: Last Vital Signs Temp 98.8 F 03/09/19 13:40 Pulse 88 03/09/19 13:40 Resp 18 03/09/19 13:40 BP 117/74 03/09/19 13:40 Pulse Ox 100 03/09/19 13:40 Primary Care Physician: Non H Provider - Medical History PMH: Bipolar Disorder, Schizophrenia Denies: Diabetes, Hepatitis, HIV, HTN, Seizures, Sexually Transmitted Disease Surgical History: Tonsillectomy - [facility] Procedures CLOSURE SKIN & SUBCUTANEOUS NEC (07/15/14) GROUP PSYCHOTHERAPY (05/08/18) TETANUS TOXOID ADMINIST (01/01/14) Family History: States: Unknown Family Hx - Social History Hx Tobacco Use: Yes Hx Alcohol Use: Yes Hx Substance Use: Yes - Immunization History Hx Tetanus Toxoid Vaccination: No Hx Influenza Vaccination: No Hx Pneumococcal Vaccination: No Review Of Systems Constitutional: Negative for: Fever, Chills Skin: Positive for: Lesions Physical Exam - Physical Exam Appears: Non-toxic, No Acute Distress Skin: Warm, Dry, Other (SKIN B/L FOREARM SKIN PLAQUES C/W PSORIASIS. NO CELLULITIS, DC) Head: Atraumatic, Normacephalic Oral Mucosa: Moist Neck: Supple Extremity: Normal ROM Neurological/Psych: Oriented x3, Normal Speech, Normal Cognition ED Course And Treatment O2 Sat by Pulse Oximetry: 100 (on RA) Pulse Ox Interpretation: Normal Medical Decision Making Medical Decision Making: ADVISED NEED FOR MANAGER SHAREPOINT EVAL. CLINIC REFERRAL Disposition Counseled Patient/Family Regarding: Diagnosis, Need For Followup, Rx Given - Disposition Referrals: Non [facility] Provider, [Primary Care Provider] - [facility] [Outside] [facility] [Outside] Disposition: HOME/ ROUTINE Disposition Time: 14:08 Condition: GOOD Prescriptions: Triamcinolone 0.1% [Triamcinolone 0.1% Cream] 0.1 unit TP TID #2 tube Instructions: Psoriasis (DC) Forms: [employer] (Macedonian) - Clinical Impression Clinical Impression: Psoriasis - Scribe Statement The provider has reviewed the documentation as recorded by the Scribe (Katrina Dominguez) Provider Attestation: All medical record entries made by the Scribe were at my direction and personally dictated by me. I have reviewed the chart and agree that the record accurately reflects my personal performance of the history, physical exam, medical decision making, and the department course for this patient. I have also personally directed, reviewed, and agree with the discharge instructions and disposition.
== END 2019-03-09 14:16 | disposition home or self-care (01) ==
LOC: C.ER 13:31 → SUPCPDRO 13:31 → C.ER 14:16
DX: L40.9 Psoriasis, unspecified (principal)